=== PATIENT | male | born 1980 | race Caucasian/White ===

== ENCOUNTER 2016-10-15 22:37 | Emergency (ER) | payer OTHER ==
[~2016-10-15] VITALS: Ht 165.1 cm; Wt 64.0 kg
[~2016-10-15 22:37] MED LIST: BLOO1EAC85 MC; LANC1COM MC; LANT3I SC; LORA1TAB PO; NOVO3I SC; ONDA4TAB14 PO; [UNRECOGNIZED DRUG - CODE] MC
[2016-10-15 22:45] VITALS: Ht 165.1 cm; Wt 64.0 kg
[2016-10-15] MEDS ORDERED: ONDANSETRON 4 MG INJ IV STA (23:07)
[2016-10-15] MEDS ORDERED: SOD CHLORIDE 0.9% 1,000 ML IV STA (23:07)
[2016-10-15] MEDS ORDERED: morphine 4 MG/ML VIAL IV STA (23:07)
--- NOTE | 2016-10-15 23:13 | ERD ---
ER Documentation Chief Complaint Date/Time DATE: 10/15/16 TIME: 23:12 Chief Complaint vomited multiple times today w/ diffuse abd pain HPI 36 L with a history of diabetes comes emergency room with nausea, vomiting epigastric abdominal pain that started this morning. Patient states that he has epigastric pain that is radiating diffusely. He denies fever, chills, diarrhea. ROS All systems reviewed and are negative except as per history of present illness. Medications Home Meds Active Scripts Ondansetron (Ondansetron Odt) 4 Mg Tab.rapdis, 4 MG PO Q6H Y for NAUSEA AND/OR VOMITING, #20 TAB Prov:ARMIN CORDERO PA-C 10/16/16 Ranitidine Hcl* (Zantac*) 150 Mg Tablet, 150 MG PO BID Y for EPIGASTRIC PAIN, # 60 TAB Prov:ARMIN CORDERO PA-C 10/16/16 Pantoprazole* (Protonix*) 40 Mg Tablet.dr, 40 MG PO DAILY, #20 TAB Prov:ARMIN CORDERO PA-C 10/16/16 Lorazepam* (Lorazepam*) 1 Mg Tablet, 1 MG PO Q8H Y for ANXIETY, #15 TAB Prov:WADE DEL VALLE DO 08/15/16 Ondansetron (Ondansetron Odt) 4 Mg Tab.rapdis, 4 MG PO Q6H Y for NAUSEA AND/OR VOMITING, #10 TAB Prov:ELIE LAU NP 07/05/16 Insulin Glargine* (Lantus*) 100 Unit/Ml Soln, 22 UNIT SC HS for 30 Days, #5 3 Refills Prov:TAMI BHATIA MD 03/06/16 Insulin Aspart* (Novolog Insulin Pen*) 100 Unit/Ml Soln, 4 UNIT SC WITH MEALS for ELEVATED GLUCOSE for 30 Days, #5 3 Refills Prov:TAMI BHATIA MD 03/06/16 Lancets/Blood Glucose Strips (Fora [id number] Lanct-Str) 1 Each Combo..pkg , 1 EACH MC, #360 Prov:NNEKA NOGUERA MD 03/06/16 Syringe W-Ndl, Disp,Insul,1ML (Bd Insulin Syringe Micro-Fine) 1 Dis.syr Disp.syrin, 1 DIS.SYR MC, #360 Prov:NNEKA NOGUERA MD 03/06/16 Blood-Glucose Meter (Blood Glucose Meter) 1 Pkt Each, 1 PKT , #1 Prov:NNEKA NOGUERA MD 03/06/16 Insulin Glargine* (Lantus*) 100 Unit/Ml Soln, 22 UNIT SC HS for 60 Days, 1 Refill Prov:NNEKA NOGUERA MD 03/06/16 Insulin Aspart* (Novolog Insulin Pen*) 100 Unit/Ml Soln, 8 UNIT SC WITH MEALS for 90 Days, 0 Refills with carbohydrate meals Prov:NNEKA NOGUERA MD 03/06/16 Lorazepam* (Lorazepam*) 1 Mg Tablet, 1 MG PO Q8H Y for ANXIETY, #10 Prov:ARNALDO ONEILL 06/10/15 Allergies Allergies: Coded Allergies: No Known Allergy (Unverified , 08/14/16) PMhx/Soc Medical and Surgical Hx: pt denies Medical Hx, pt denies Surgical Hx History of Surgery: No Anesthesia Reaction: No Hx Neurological Disorder: No Hx Respiratory Disorders: No Hx Cardiac Disorders: No Hx Psychiatric Problems: No Hx Miscellaneous Medical Probl: Yes (iddm, pancreatitis) Hx Alcohol Use: Yes (socially) Hx Substance Use: No Hx Tobacco Use: No Physical Exam Vitals Vital Signs Date Time Temp Pulse Resp B/P Pulse Ox O2 Delivery O2 Flow Rate FiO2 10/15/16 22:45 98.1 104 20 163/90 100 Physical Exam General: Well-developed, well-nourished. The patient appears in no acute distress. HEENT: Head is normocephalic, atraumatic. No scleral icterus. Neck: Supple. Nontender. Lungs: Clear to auscultation. Normal air movement. Heart: Regular rate and rhythm. S1 and S2 are normal. No murmurs, gallops, or rubs. Abdomen: Soft, tender in the epigastric region nondistended. Bowel sounds are normoactive. No rebound pain or guarding Extremities: No clubbing or cyanosis. Normal pulses. Moving extremities x 4. No weakness. Neurologic: Alert and oriented 3. No focal deficits. Skin: Normal turgor. No rash or lesions. Result Diagram: 10/15/16 6866 10/15/16 2358 Results 24 hrs Laboratory Tests Test 10/15/16 23:58 Alanine Aminotransferase (ALT/SGPT) 212IU/L Albumin 4.1g/dl Albumin/Globulin Ratio 1.13 Alkaline Phosphatase 176IU/L Anion Gap 21 Aspartate Amino Transf (AST/SGOT) 283IU/L Basophils # 0.010^3/ul Basophils % 0.8% Blood Urea Nitrogen 12mg/dl Calcium Level 8.8mg/dl Carbon Dioxide Level 30mmol/L Chloride Level 87mmol/L Creatinine 0.76mg/dl Direct Bilirubin 0.30mg/dl Eosinophils # 0.010^3/ul Eosinophils % 0.5% Globulin 3.60g/dl Glucose Level 244mg/dl Hematocrit 48.3% Hemoglobin 16.9g/dl Indirect Bilirubin 1.2mg/dl Lipase 32U/L Lymphocytes # 0.710^3/ul Lymphocytes % 28.0% Mean Corpuscular Hemoglobin 32.1pg Mean Corpuscular Hemoglobin Concent 35.1g/dl Mean Corpuscular Volume 91.6fl Mean Platelet Volume 9.3fl Monocytes # 0.310^3/ul Monocytes % 13.0% Neutrophils # 1.510^3/ul Neutrophils % 57.7% Nucleated Red Blood Cells # 0.010^3/ul Nucleated Red Blood Cells % 0.0/100WBC Platelet Count 75436^3/UL Potassium Level 3.5mmol/L Red Blood Count 5.2710^6/ul Red Cell Distribution Width 14.1% Sodium Level 134mmol/L Total Bilirubin 1.5mg/dl Total Protein 7.7g/dl Urine Bilirubin NEGATIVE Urine Clarity CLEAR Urine Color YELLOW Urine Glucose >=1000% Urine Hemoglobin NEGATIVE Urine Ketones NEGATIVE Urine Leukocyte Esterase NEGATIVE Urine Nitrite NEGATIVE Urine Specific [place] 1.015 Urine Total Protein NEGATIVE Urine Urobilinogen 0.2 E.U./dL Urine pH 6.5 White Blood Count 2.610^3/ul Current Medications Medications (Trade) Dose Ordered Sig/Narendra Route PRN Reason Start Time Stop Time Status Last Admin Dose Admin Sodium Chloride (NS) 1,000 ml @ 1,000 mls/hr Q1H STAT IV 10/15/16 23:07 10/16/16 00:06 DC 10/15/16 23:58 Morphine Sulfate (morphine) 4 mg ONCE STAT IV 10/15/16 23:07 10/15/16 23:09 DC 1/20/17 23:59 Ondansetron HCl (Zofran Inj) 4 mg ONCE STAT IV 10/15/16 23:07 10/15/16 23:09 DC 10/15/16 23:59 Ondansetron HCl 4 mg 4 mg ONCE STAT IV 10/16/16 00:47 10/16/16 00:48 DC 10/16/16 00:52 Sodium Chloride (NS) 1,000 ml @ 1,000 mls/hr Q1H ONCE IV 10/16/16 01:30 10/16/16 02:29 10/16/16 01:49 Famotidine (Pepcid Iv) 20 mg ONCE ONCE IV 10/16/16 01:30 10/16/16 01:31 DC 10/16/16 01:48 Hydromorphone HCl (Dilaudid) 1 mg ONCE STAT IV 10/16/16 02:04 10/16/16 02:05 DC Miscellaneous Medication (Gi Cocktail (2)) 40 ml ONCE STAT PO 10/16/16 02:13 10/16/16 02:16 DC Belladonna/ Phenobarbital () 1 tab ONCE ONCE PO 10/16/16 02:30 10/16/16 02:31 PROCEDURE: Ultrasound right upper quadrant CLINICAL INDICATION: Epigastric pain with nausea and vomiting. TECHNIQUE: Ultrasound abdomen with focus on the right upper quadrant COMPARISON: MRI abdomen dated 12/18/[address] abdomen and pelvis dated 12/17. FINDINGS: Sludge within gallbladder, without shadowing stones. No gallbladder wall thickening or pericholecystic fluid. Gallbladder wall measures 1 mm in thickness. Common bile duct measures 4 mm. Liver measures 167 mm. Right kidney measures 108 mm, and there is no evident renal mass, hydronephrosis or retained calculus. Pancreas is obscured by overlying bowel gas. IMPRESSION: 1. Gallbladder sludge, otherwise without evident acute process. 2. Findings may represent that acalculus cholecystitis in the appropriate clinical setting. RPTAT: [facility] Physician Soniya Date Time Electronically viewed and signed by Physician Soniya on 10/16/2016 02:03 RS/ Procedures/MDM ED course: Patient on IV line established, he was given a fluid bolus of normal saline 1 L , morphine 4 mg and Zofran 4 mg IV. He was also given Pepcid 20 mg IV and he experienced one episode of emesis and was given a repeat dose of Zofran 4 mg IV. After the ultrasound was then, he continued to complain of abdominal pain, he was given a dose of Dilaudid 1 mg IV, GI cocktail was also given. I discussed his case with my supervising physician and it was agreed upon that the patient does not have an acute or surgical process. He was counseled at length about drinking and the long-term effects and he was advised ice to quit drinking completely given that his liver enzymes are elevated. There is no evidence of acute pancreatitis, no evidence of an obstructive process or acute cholecystitis based on the patient's ultrasound. He was advised to fill the prescriptions for Protonix, ranitidine and Zofran, he was also given and instructions to follow-up with gastroenterology. Observation of patient's pain will be signed out to Ema Redmna PA-C, he should not require any further pain medication especially opiates. He will be discharged after observation of his pain. Departure Diagnosis: Primary Impression: Abdominal pain Additional Impression: Transaminitis Condition: ARMIN Russell PA-C Oct 15, 2016 23:13
[2016-10-16 00:37] LABS: ALBUMIN 4.1 g/dl (3.3-4.9); POTASSIUM 3.5 mmol/L (3.5-5.1)
[2016-10-16 00:39] LABS: CREATININE 0.76 mg/dl (0.61-1.24)
[2016-10-16 00:40] LABS: ADD UMIC NO; ALBUMIN/GLOBULIN RATIO 1.13; BILIRUBIN,DIRECT 0.3 mg/dl (0.00-0.20); BILIRUBIN,INDIRECT 1.2 mg/dl (0-1.1); BILIRUBIN,TOTAL 1.5 mg/dl (0.2-1.3); CALCIUM 8.8 mg/dl (8.4-10.2); TOTAL PROTEIN 7.7 g/dl (6.1-8.1); URINE BILIRUBIN (Dip) NEGATIVE (NEGATIVE); URINE BLOOD (Dip) NEGATIVE (NEGATIVE); URINE COLOR YELLOW (YELLOW); URINE GLUCOSE (Dip) >=1000 % (NEGATIVE); URINE KETONES (Dip) NEGATIVE (NEGATIVE); URINE LEUKOCYTE ESTERASE (Dip) NEGATIVE (NEGATIVE); URINE NITRITE (Dip) NEGATIVE (NEGATIVE); URINE TOTAL PROTEIN (Dip) NEGATIVE (NEGATIVE); URINE UROBILINOGEN (Dip) 0.2 E.U./dL (0.1-1.0)
[2016-10-16 00:44] LABS: BASOPHILS % 0.8 % (0.0-2.0); EOSINOPHILS % 0.5 % (0.0-7.0); HEMATOCRIT 48.3 % (42.0-52.0); HEMOGLOBIN 16.9 g/dl (14.0-18.0); LYMPHOCYTES # 0.7 10^3/ul (0.8-2.9); MEAN CORPUSCULAR HEMOGLOBIN 32.1 pg (29.0-33.0); MEAN CORPUSCULAR HGB CONC 35.1 g/dl (32.0-37.0); MEAN CORPUSCULAR VOLUME 91.6 fl (82.0-101.0); MEAN PLATELET VOLUME 9.3 fl (7.4-10.4); MONOCYTE # 0.3 10^3/ul (0.3-0.9); NEUTROPHIL # 1.5 10^3/ul (1.6-7.5); NEUTROPHILS % 57.7 % (39.0-77.0); PLATELET COUNT 122 10^3/UL (140-440); RED BLOOD COUNT 5.27 10^6/ul (4.70-6.10); RED CELL DISTRIBUTION WIDTH 14.1 % (11.5-14.5); UNCORRECTED WBC 2.6 10^3/ul (4.8-10.8); WHITE BLOOD COUNT 2.6 10^3/ul (4.8-10.8)
[2016-10-16] MEDS ORDERED: ONDANSETRON 4 MG INJ IV STA (00:47)
[2016-10-16 00:52] LABS: CONDITION 1; LH ANALYZER COMMENTS 1; SUSPECT 1
[2016-10-16] MEDS ORDERED: SOD CHLORIDE 0.9% 1,000 ML IV ONE (01:30)
[2016-10-16] MEDS ORDERED: FAMOTIDINE 20 MG INJ IV ONE (01:30)
[2016-10-16] MEDS ORDERED: ONDA4TAB14 PO (02:01)
[2016-10-16] MEDS ORDERED: RANI150T9 PO (02:01)
[2016-10-16] MEDS ORDERED: PANT40TA3 PO (02:01)
[2016-10-16] MEDS ORDERED: HYDROmorphONE 1 MG/ML SYG IV STA (02:04)
--- NOTE | 2016-10-16 02:04 | RADRPT ---
PROCEDURE: Ultrasound right upper quadrant CLINICAL INDICATION: Epigastric pain with nausea and vomiting. TECHNIQUE: Ultrasound abdomen with focus on the right upper quadrant COMPARISON: MRI abdomen dated 12/18/[address] abdomen and pelvis dated 12/17/2014. FINDINGS: Sludge within gallbladder, without shadowing stones. No gallbladder wall thickening or pericholecys tic fluid. Gallbladder wall measures 1 mm in thickness. Common bile duct measures 4 mm. Liver measures 167 mm. Right kidney measures 108 mm, and there is no evident renal mass, hydronephrosis or retained calculus. Pancreas is obscured by overlying bowel gas. IMPRESSION: 1. Gallbladder sludge, otherwise without evident acute process. 2. Findings may represent that acalculus cholecystitis in the appropriate clinical setting. RPTAT: [facility] Physician Soniya Date Time Electronically viewed and signed by Physician Soniya on 10/16/2016 02:03 RS/
[2016-10-16] MEDS ORDERED: LIDOCAINE/MYLANTA 40 ML BTL PO STA (02:13)
[2016-10-16] MEDS ORDERED: BELLADONNA/PHENOBARBITAL TAB PO ONE (02:30)
[2016-10-16 03:48] VITALS: PULSE 99; RESP 18; TEMP 97.9
[2016-10-16 04:03] VITALS: BP 142/104
[2016-10-16] MEDS ORDERED: ONDANSETRON (ODT) 4 MG TAB ODT STA (04:37)
[2016-10-16] MEDS ORDERED: PROM25TA14 PO (07:10)
== END 2016-10-16 07:18 | disposition home or self-care (01) ==
LOC: FTE 22:37
DX: R10.84 Generalized abdominal pain (principal); E11.9 Type 2 diabetes mellitus without complications; R74.0 Nonspecific elevation of levels of transaminase and lactic acid dehydrogenase [LDH]; R11.2 Nausea with vomiting, unspecified; Z79.4 Long term (current) use of insulin
CPT/HCPCS: 36415; 76705; 80053; 81003; 83690; 85025; 96374; 96375; 96376; J1170; J2270; J2405; J7030; Z7502; Z7610

== ENCOUNTER 2016-12-27 11:16 | Emergency (ER) | payer OTHER ==
[~2016-12-27] VITALS: Ht 165.1 cm; Wt 63.0 kg
[~2016-12-27 11:16] MED LIST changes: +PANT40TA3 PO; +PROM25TA14 PO; +RANI150T9 PO
[2016-12-27 11:20] VITALS: Ht 165.1 cm; Wt 63.0 kg
--- NOTE | 2016-12-27 12:54 | ERD ---
ER Documentation Chief Complaint Date/Time DATE: 12/27/16 TIME: 12:51 Chief Complaint alcohol withdrawl symptoms HPI Patient is a 36-year-old male with a past medical history of type 2 diabetes, pancreatitis who presents emergency department with concerns of alcohol abuse. Patient states that he drank 4 small bottles of tequila, 4 small bottles of vodka,and a Monster energy drink last night. Patient states he is here because he wants to be checked into a rehab facility. Patient states that he is finishing to quit drinking. Patient states that he drinks to handle his increased stress levels at work. Patient denies any hallucinations, suicidal or homicidal ideations at this time. Patient denies any tremors at this time. Patient denies any seizures, abdominal pain, nausea, vomiting, fever, chills, chest pain, SOB, or loss of consciousness at this time. ROS All systems reviewed and are negative except as per history of present illness. Medications Home Meds Active Scripts Promethazine Hcl* (Phenergan*) 25 Mg Tablet, 25 MG PO Q6 Y for NAUSEA AND/OR VOMITING, #10 TAB Prov:CAROL PERDUE PA-C 10/16/16 Ondansetron (Ondansetron Odt) 4 Mg Tab.rapdis, 4 MG PO Q6H Y for NAUSEA AND/OR VOMITING, #20 TAB Prov:ARMIN CORDERO PA-C 10/16/16 Ranitidine Hcl* (Zantac*) 150 Mg Tablet, 150 MG PO BID Y for EPIGASTRIC PAIN, # 60 TAB Prov:ARMIN CORDERO PA-C 10/16/16 Pantoprazole* (Protonix*) 40 Mg Tablet.dr, 40 MG PO DAILY, #20 TAB Prov:ARMIN CORDERO PA-C 10/16/16 Lorazepam* (Lorazepam*) 1 Mg Tablet, 1 MG PO Q8H Y for ANXIETY, #15 TAB Prov:WADE DEL VALLE DO 08/15/16 Ondansetron (Ondansetron Odt) 4 Mg Tab.rapdis, 4 MG PO Q6H Y for NAUSEA AND/OR VOMITING, #10 TAB Prov:ELIE LAU NP 07/05/16 Insulin Glargine* (Lantus*) 100 Unit/Ml Soln, 22 UNIT SC HS for 30 Days, #5 3 Refills Prov:TAMI BHATIA MD 03/06/16 Insulin Aspart* (Novolog Insulin Pen*) 100 Unit/Ml Soln, 4 UNIT SC WITH MEALS for ELEVATED GLUCOSE for 30 Days, #5 3 Refills Prov:TAMI BHATIA MD 03/06/16 Lancets/Blood Glucose Strips (Fora [id number] Lanct-Str) 1 Each Combo..pkg , 1 EACH , #360 Prov:NNEKA NOGUERA MD 03/06/16 Syringe W-Ndl, Disp,Insul,1ML (Bd Insulin Syringe Micro-Fine) 1 Dis.syr Disp.syrin, 1 DIS.SYR , #360 Prov:NNEKA NOGUERA MD 03/06/16 Blood-Glucose Meter (Blood Glucose Meter) 1 Pkt Each, 1 PKT , #1 Prov:NNEKA NOGUERA MD 03/06/16 Insulin Glargine* (Lantus*) 100 Unit/Ml Soln, 22 UNIT SC HS for 60 Days, 1 Refill Prov:NNEKA NOGUERA MD 03/06/16 Insulin Aspart* (Novolog Insulin Pen*) 100 Unit/Ml Soln, 8 UNIT SC WITH MEALS for 90 Days, 0 Refills with carbohydrate meals Prov:NNEKA NOGUERA MD 03/06/16 Lorazepam* (Lorazepam*) 1 Mg Tablet, 1 MG PO Q8H Y for ANXIETY, #10 Prov:ARNALDO ONEILL 06/10/15 Allergies Allergies: Coded Allergies: No Known Allergy (Unverified , 08/14/16) PMhx/Soc History of Surgery: No Anesthesia Reaction: No Hx Neurological Disorder: No Hx Respiratory Disorders: No Hx Cardiac Disorders: No Hx Psychiatric Problems: No Hx Miscellaneous Medical Probl: Yes (iddm, pancreatitis) Hx Alcohol Use: Yes (socially) Hx Substance Use: No Hx Tobacco Use: No Physical Exam Vitals Vital Signs Date Time Temp Pulse Resp B/P Pulse Ox O2 Delivery O2 Flow Rate FiO2 12/27/16 11:20 98.4 108 18 135/83 99 Physical Exam GENERAL: Well-developed, well-nourished male. Appears in no acute distress. Speaking in full sentences. HEAD: Normocephalic, atraumatic. EYES: Pupils are equally reactive bilaterally. EOMs grossly intact. No conjunctival erythema. ENT: Moist mucous membranes. No uvula deviation. No kissing tonsils. NECK: Supple. No lymphadenopathy or thyromegaly. No meningismus. LUNG: Clear to auscultation bilaterally. No rhonchi, wheezing, rales or coarse breath sounds. HEART: Regular rate and rhythm. No murmurs, rubs or gallops. ABDOMEN: No scars, ecchymosis or rashes noted. Soft, nontender, and nondistended. Positive bowel sounds in all four quadrants.~No rebound tenderness , no guarding. (-) McBurneys point tenderness. No CVA tenderness. BACK: No midline tenderness. Extremities: Equal pulses bilaterally. No peripheral clubbing, cyanosis or edema. No unilateral leg swelling. NEUROLOGIC: Alert and oriented. Moving all four extremities. 5/5 strength in all extremities. Normal speech. Steady gait. No tremors. SKIN: Normal color. Warm and dry. No rashes or lesions. Results 24 hrs Current Medications Medications (Trade) Dose Ordered Sig/Narendra Route PRN Reason Start Time Stop Time Status Last Admin Dose Admin Lorazepam (Ativan) 1 mg ONCE ONCE PO 12/27/16 13:00 12/27/16 13:01 DC 12/27/16 12:46 Procedures/MDM MEDICAL DECISION MAKING: This is a 36 year old male with a history of alcohol abuse, DM Type 2, pancreatitis who presents to the ED with concerns of alcohol abuse. Patient states that he is wishing to check in to an rehab center and wants to stop drinking. Patient denied any nausea, vomiting or abdominal pain. Patient denied any current hallucinations, suicidal ideations or homicidal ideations. Patient reported last consuming alcohol last night. Patient was given a single dose of Ativan in ED to aid with any alcohol withdrawal symptoms that he may later develop. I had a discussion at length about the numerous options of help available including rehab facilities in the immediate area. Patient provided with a list of local rehab facilities. Patient was urged to check in immediately to get the help he needs with his alcoholism. At this time, patient' s presentation is most consistent with alcohol abuse. Low suspicion for hallucinations, ethanol toxicity, drug toxicity, suicidal ideations, homicidal ideations. DISCHARGE: At this time, patient is stable for discharge and outpatient management. I discussed the patient's presentation, diagnosis and dispo plan with my supervising physician, Dr. Hdz, who agrees with the above mentioned plan. I have instructed the patient to follow-up with his/her primary care physician in 1-2 days. Patient strongly urged to go to a rehab facility and seek the help he needs. I have instructed the patient to promptly return to the ER for any new or worsening symptoms including increased pain, fever, nausea, vomiting, weakness or LOC. The patient and/or family expressed understanding of and agreement with this plan. All questions were answered. Home care instructions were provided. Departure Diagnosis: Primary Impression: Alcohol abuse Condition: Stable Patient Instructions: Alcohol Abuse Referrals: [facility] Additional Instructions: Call your primary care doctor TOMORROW for an appointment during the next 1-2 days.See the doctor sooner or return here if your condition worsens before your appointment time. Patient strongly urged to check into a rehab facility [facility]. See referral list provided. AYDEE WONG PA-C Dec 27, 2016 12:53
[2016-12-27] MEDS ORDERED: LORAZEPAM 1 MG TAB PO ONE (13:00)
== END 2016-12-27 13:40 | disposition home or self-care (01) ==
LOC: FTE 11:16
DX: F10.10 Alcohol abuse, uncomplicated (principal); E11.9 Type 2 diabetes mellitus without complications; Z79.4 Long term (current) use of insulin
CPT/HCPCS: Z7502; Z7610; 99283

== ENCOUNTER 2017-01-29 02:36 | Emergency (ER) | payer OTHER ==
[~2017-01-29] VITALS: Ht 172.7 cm; Wt 67.0 kg
[2017-01-29 02:40] VITALS: Ht 172.7 cm; Wt 67.0 kg
[2017-01-29] MEDS ORDERED: IBUPROFEN 800 MG TAB PO ONE (03:30)
--- NOTE | 2017-01-29 04:28 | RADRPT ---
PROCEDURE: Left tibia and fibula. CLINICAL INDICATION: Pain. TECHNIQUE: Two views including AP and lateral views of the left tibia and fibula were obtained. COMPARISON: None. FINDINGS: There is no fracture, dislocation or bone destruction. The joint spaces are within normal limits. Bone mineralization is within normal limits. There is no radiopaque foreign body or abnormal calcif ication. IMPRESSION: No evidence of fracture. .David Hernandez MD, MD Date Time Electronically viewed and signed by .David Hernandez MD, on 01/29/2017 04:28 .T/
--- NOTE | 2017-01-29 04:29 | RADRPT ---
PROCEDURE: Left ankle. CLINICAL INDICATION: Pain. TECHNIQUE: Three views including AP, lateral and oblique views of the left ankle were performed. COMPARISON: None. FINDINGS: There is a transverse fracture of the proximal aspect of the third metatarsal. There is no dislocat ion. The ankle mortise is within normal limits. Bone mineralization is within normal limits. Ther e is no radiopaque foreign body or abnormal calcification. IMPRESSION: Transverse fracture of the proximal aspect of the third metatarsal. .David Hernandez MD, Date Time Electronically viewed and signed by .David Hernandez MD, MD on 01/29/2017 04:29 .T/
--- NOTE | 2017-01-29 04:30 | RADRPT ---
PROCEDURE: Left foot. CLINICAL INDICATION: Pain. TECHNIQUE: Three views including AP, lateral and oblique views of the left foot were obtained. T he images were reviewed on a PACS workstation. COMPARISON: None. FINDINGS: There is a nondisplaced fracture of the proximal aspect of the third metatarsal. There is no disloc ation. The joint spaces are within normal limits. Bone mineralization is within normal limits. Th ere is no radiopaque foreign body or abnormal calcification. IMPRESSION: Nondisplaced fracture of the proximal aspect of the third metatarsal. .David Hernandez MD, MD Date Time Electronically viewed and signed by .David Hernandez MD, MD on 01/29/2017 04:30 .T/
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
[2017-01-29] MEDS ORDERED: HYDR-906 PO (04:47)
[2017-01-29] MEDS ORDERED: IBUP800T25 PO (04:47)
== END 2017-01-29 04:53 | disposition home or self-care (01) ==
LOC: FTE 02:36
DX: S92.332A Displaced fracture of third metatarsal bone, left foot, initial encounter for closed fracture (principal); S90.32XA Contusion of left foot, initial encounter; E11.9 Type 2 diabetes mellitus without complications; W20.8XXA Other cause of strike by thrown, projected or falling object, initial encounter; Y92.9 Unspecified place or not applicable; Z79.4 Long term (current) use of insulin
CPT/HCPCS: 73590; 73610; 73630; Z7502; Z7610

== ENCOUNTER 2017-02-15 02:26 | Emergency (ER) | payer OTHER ==
[~2017-02-15] VITALS: Ht 172.7 cm; Wt 70.0 kg
[~2017-02-15 02:26] MED LIST changes: +HYDR-906 PO; +IBUP800T25 PO
[2017-02-15 03:15] VITALS: Ht 172.7 cm; Wt 70.0 kg
[2017-02-15] MEDS ORDERED: morphine 4 MG/ML VIAL IV STA ×2 (07:27→10:13)
[2017-02-15] MEDS ORDERED: ONDANSETRON 4 MG INJ IV STA ×2 (07:27→10:13)
--- NOTE | 2017-02-15 08:17 | RADRPT ---
PROCEDURE: US DVT. CLINICAL INDICATION: Left lower extremity pain and swelling. TECHNIQUE: Multiple longitudinal and transverse images of the left lower extremity veins were obta ined with davis scale and color Doppler imaging. 2D grayscale measurements with compression, color D oppler flow, and augmentation was performed. The calf veins were interrogated as well. COMPARISON: No prior studies are available for comparison. FINDINGS: The left common femoral, superficial femoral and popliteal veins are normally compressible throughou t. Color flow demonstrates normal filling of the vessel. Normal waveforms are visualized and there is normal response to augmentation. The calf veins are unremarkable . IMPRESSION: No evidence of deep vein thrombosis involving the left lower extremity. RPTAT:HH .Leanne Goff MD, MD Date Time Electronically viewed and signed by .Leanne Goff MD, on 02/15/2017 08:16 .G/
--- NOTE | 2017-02-15 08:49 | RADRPT ---
PROCEDURE: Left knee series. CLINICAL INDICATION: Left knee pain after trauma TECHNIQUE: Three views of the left knee. COMPARISON: None available FINDINGS: There is normal mineralization and alignment of the left knee. No acute fracture or dislocation is seen. Joint spaces are well maintained. There is no evidence of osteophyte formation or erosion. There is a questionable joint effusion. The soft tissues are within normal limits. IMPRESSION: 1. No evidence of acute fracture dislocation. 2. Questionable joint effusion. RPTAT: KK .Allan Carlton MD, MD Date Time Electronically viewed and signed by .Allan Carlton MD, on 02/15/2017 08:49 .B/
--- NOTE | 2017-02-15 08:51 | RADRPT ---
PROCEDURE: Left foot series. CLINICAL INDICATION: Left foot pain after injury TECHNIQUE: Three views of the left foot are available for review. COMPARISON: None available FINDINGS: There is normal mineralization and alignment of the bones of the left foot. Lisfranc's joint is sub optimally visualized but appears grossly intact. There is a probable nondisplaced fracture of the p roximal third metatarsal seen only on the oblique view. There is no other evidence of acute fractur e or dislocation Joint spaces are well maintained. No osteophytes or erosions are seen. There is m ild dorsal soft tissue swelling . IMPRESSION: 1. Probable nondisplaced fracture of the proximal third metatarsal. Recommend correlation with poi nt tenderness. 2. Mild dorsal soft tissue swelling. 3. Otherwise unremarkable left foot series. RPTAT: KK .Allan Carlton MD, MD Date Time Electronically viewed and signed by .Allan Carlton MD, on 02/15/2017 08:51 .B/
--- NOTE | 2017-02-15 08:52 | RADRPT ---
PROCEDURE: XR Tibia and Fibula. CLINICAL INDICATION: Left lower leg pain after trauma TECHNIQUE: Two views of the left tibia and fibula are available for review. COMPARISON: None available FINDINGS: There is normal mineralization and alignment of the bones of the left tibia and fibula. There is no evidence of acute fracture or dislocation. The suboptimally visualized joint spaces appear grossly within normal limits. The soft tissues are unremarkable. IMPRESSION: 1. Unremarkable left tibia and fibula x-ray series. RPTAT: KK .Allan Carlton MD, MD Date Time Electronically viewed and signed by .Allan Carlton MD, on 02/15/2017 08:52 .B/
[2017-02-15] MEDS ORDERED: ACETAMINOPHEN 325 MG TAB PO STA (08:56)
[2017-02-15 09:05] LABS: ADD SCAN DIFF NO
[2017-02-15 09:08] LABS: BASOPHILS % 0.6 % (0.0-2.0); EOSINOPHILS # 0.1 10^3/ul (0.0-0.5); EOSINOPHILS % 1.6 % (0.0-7.0); HEMATOCRIT 32.1 % (42.0-52.0); HEMOGLOBIN 11.8 g/dl (14.0-18.0); LYMPHOCYTES % 39.4 % (15.0-51.0); MEAN CORPUSCULAR HEMOGLOBIN 34.4 pg (29.0-33.0); MEAN CORPUSCULAR HGB CONC 36.8 g/dl (32.0-37.0); MEAN CORPUSCULAR VOLUME 93.6 fl (82.0-101.0); MEAN PLATELET VOLUME 9.7 fl (7.4-10.4); MONOCYTE # 0.4 10^3/ul (0.3-0.9); MONOCYTES % 8.6 % (0.0-11.0); NEUTROPHIL # 2.5 10^3/ul (1.6-7.5); NEUTROPHILS % 49.6 % (39.0-77.0); PLATELET COUNT 209 10^3/UL (140-415); RED BLOOD COUNT 3.43 10^6/ul (4.70-6.10); RED CELL DISTRIBUTION WIDTH 13.5 % (11.5-14.5)
[2017-02-15] MEDS ORDERED: NAPR-688 PO (09:13)
[2017-02-15] MEDS ORDERED: ACET325T33 PO (09:13)
[2017-02-15] MEDS ORDERED: BACITUD TOP (09:13)
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
[2017-02-15 09:31] LABS: CALCIUM 7.4 mg/dl (8.4-10.2); CREATININE 0.68 mg/dl (0.61-1.24); POTASSIUM 3.6 mmol/L (3.5-5.1)
== END 2017-02-15 10:05 | disposition home or self-care (01) ==
LOC: FTE 02:26
DX: S89.92XA Unspecified injury of left lower leg, initial encounter (principal); M25.462 Effusion, left knee; E11.9 Type 2 diabetes mellitus without complications; V18.4XXA Pedal cycle driver injured in noncollision transport accident in traffic accident, initial encounter; Z79.4 Long term (current) use of insulin
CPT/HCPCS: 29505; 36415; 73562; 73590; 73630; 80048; 85025; 87040; 93971; 96374; 96375; J2270; J2405; Z7502; Z7610

== ENCOUNTER 2017-06-23 16:49 | Emergency (ER) | payer OTHER ==
[~2017-06-23] VITALS: Ht 170.2 cm; Wt 70.0 kg
[~2017-06-23 16:49] MED LIST changes: +ACET325T33 PO; +BACITUD TOP; +NAPR-688 PO
[2017-06-23 16:52] VITALS: Ht 170.2 cm; Wt 70.0 kg
[2017-06-23 17:40] LABS: BASOPHILS % 0.5 % (0.0-2.0); EOSINOPHILS # 0.1 10^3/ul (0.0-0.5); EOSINOPHILS % 1.1 % (0.0-7.0); HEMATOCRIT 42.8 % (42.0-52.0); LYMPHOCYTES # 0.8 10^3/ul (0.8-2.9); LYMPHOCYTES % 14.2 % (15.0-51.0); MEAN CORPUSCULAR HEMOGLOBIN 32.1 pg (29.0-33.0); MEAN CORPUSCULAR VOLUME 91.5 fl (82.0-101.0); MEAN PLATELET VOLUME 10.4 fl (7.4-10.4); MONOCYTE # 0.5 10^3/ul (0.3-0.9); MONOCYTES % 9.5 % (0.0-11.0); NEUTROPHIL # 4.3 10^3/ul (1.6-7.5); NEUTROPHILS % 74.5 % (39.0-77.0); PLATELET COUNT 161 10^3/UL (140-415); RED BLOOD COUNT 4.68 10^6/ul (4.70-6.10); RED CELL DISTRIBUTION WIDTH 12.1 % (11.5-14.5); WHITE BLOOD COUNT 5.7 10^3/ul (4.8-10.8)
[2017-06-23 17:42] LABS: ADD UMIC NO; UR ASCORBIC ACID NEGATIVE (NEGATIVE); UR BILIRUBIN (Dip) NEGATIVE (NEGATIVE); UR BLOOD (Dip) NEGATIVE (NEGATIVE); UR CLARITY CLEAR (CLEAR); UR COLOR YELLOW (YELLOW); UR GLUCOSE (Dip) NEGATIVE (NEGATIVE); UR KETONES (Dip) NEGATIVE (NEGATIVE); UR LEUKOCYTE ESTERASE (Dip) NEGATIVE Leu/ul (NEGATIVE); UR NITRITE (Dip) NEGATIVE (NEGATIVE); UR SPECIFIC GRAVITY (Dip) 1.028 (1.003-1.030); UR TOTAL PROTEIN (Dip) NEGATIVE (NEGATIVE); UR UROBILINOGEN (Dip) NEGATIVE (NEGATIVE)
[2017-06-23 18:03] LABS: ALANINE AMINOTRANSFERASE 58 IU/L (13-69); ALBUMIN 4.4 g/dl (3.3-4.9); ALBUMIN/GLOBULIN RATIO 1.37; ALKALINE PHOSPHATASE 52 IU/L (42-121); ANION GAP 13 (8-16); ASPARTATE AMINO TRANSFERASE 51 IU/L (15-46); BILIRUBIN,INDIRECT 0.4 mg/dl (0-1.1); BILIRUBIN,TOTAL 0.4 mg/dl (0.2-1.3); BLOOD UREA NITROGEN 14 mg/dl (7-20); CALCIUM 8.9 mg/dl (8.4-10.2); CARBON DIOXIDE 28 mmol/L (21-31); CHLORIDE 106 mmol/L (97-110); GLUCOSE 126 mg/dl (70-220); POTASSIUM 3.8 mmol/L (3.5-5.1); SODIUM 143 mmol/L (135-144); TOTAL PROTEIN 7.6 g/dl (6.1-8.1)
--- NOTE | 2017-06-23 18:03 | PSY ---
Date/Time of Note Date/Time of Note DATE: 06/23/17 TIME: 18:00 Psychiatric Subjective Eval Consent Pt consented to telemedicine: Yes Subjective Evaluation Patient location: emergency Chief Complaint: auditory hallucinations, sore throat, + etoh. History of present illness 36/m, relapsed on alcohol abuse, c/o auditory hallucinations asking him to , kill self, they are present all the time, family is worried that he will hurt self. he feels that he may hurt self like he had cut himself 3 yrs ago. he is unable to stop ETOH for long periods. Past psychiatric history ETOH abuse one SA Hospitalization: yes Medical history Problems Medical Problems: (1) Abdominal pain Status: Acute (2) Alcohol abuse Status: Acute (3) Alcohol abuse Status: Acute (4) Alcohol withdrawal syndrome Status: Acute (5) Alcohol withdrawal syndrome Status: Acute (6) Chronic pancreatitis Status: Chronic (7) Cirrhosis with alcoholism Status: Chronic (8) Diabetes mellitus due to underlying condition Status: Chronic (9) Foot contusion Status: Acute (10) Fracture of metatarsal bone of left foot Status: Acute (11) Hyperglycemia Status: Acute (12) Intractable abdominal pain Status: Acute (13) Joint effusion Status: Acute (14) New onset type 2 diabetes mellitus Status: Acute (15) Pain of left lower extremity due to injury Status: Acute (16) Swelling Status: Acute (17) Transaminitis Status: Acute (18) Vomiting Status: Acute Allergies: Coded Allergies: No Known Allergy (Unverified , 08/14/16) Social History Marital status: single Psychiatric Objective Eval Review of Systems: Review of Systems: Not Applicable Physical Examination: Physical Examination: Not Applicable Mental Status Examination: Eye Contact: Fair Psychomotor Activity: Normal Behavior: Cooperative Speech: Soft AFFECT: Depressed Mood: Depressed Though Process: Linear Suicidal: Yes Homicidal: No Orientation: x4 Cognition: Alert Insight: Impared Judgement: Impared Laboratory Results Laboratory Tests Test 06/23/17 17:30 White Blood Count 5.710^3/ul Red Blood Count 4.6810^6/ul Hemoglobin 15.0g/dl Hematocrit 42.8% Mean Corpuscular Volume 91.5fl Mean Corpuscular Hemoglobin 32.1pg Mean Corpuscular Hemoglobin Concent 35.0g/dl Red Cell Distribution Width 12.1% Platelet Count 49027^3/UL Mean Platelet Volume 10.4fl Neutrophils % 74.5% Lymphocytes % 14.2% Monocytes % 9.5% Eosinophils % 1.1% Basophils % 0.5% Nucleated Red Blood Cells % 0.0/100WBC Neutrophils # 4.310^3/ul Lymphocytes # 0.810^3/ul Monocytes # 0.510^3/ul Eosinophils # 0.110^3/ul Basophils # 0.010^3/ul Nucleated Red Blood Cells # 0.010^3/ul Urine Color YELLOW Urine Clarity CLEAR Urine pH 5.0 Urine Specific [facility] 1.028 Urine Ketones NEGATIVEmg/dL Urine Nitrite NEGATIVEmg/dL Urine Bilirubin NEGATIVEmg/dL Urine Urobilinogen NEGATIVEmg/dL Urine Leukocyte Esterase NEGATIVELeu/ul Urine Hemoglobin NEGATIVEmg/dL Urine Glucose NEGATIVEmg/dL Urine Total Protein NEGATIVEmg/dl Assessment and Plan Assessment/Diagnosis [place] I: mood diosrder NOS 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 DTS. risk of suicide is high. Alohol withdrwal precautions. 5150 Recommendation: TEO Falk MD Jun 23, 2017 18:03
[2017-06-23 18:06] LABS: ACETAMINOPHEN < 10.0 ug/ml (10.0-30.0); BARBITURATES Negative (NEGATIVE); BENZODIAZEPINES Negative (NEGATIVE); CANNABINOIDS Negative (NEGATIVE); COCAINE Positive (NEGATIVE); OPIATES Negative (NEGATIVE); SALICYLATE < 1.0 mg/dl (5.0-30.0)
[2017-06-23] MEDS ORDERED: ESCITALOPRAM 10 MG TAB PO SCH (18:30)
[2017-06-23] MEDS ORDERED: LIDOCAINE/MYLANTA 40 ML BTL PO ONE (20:00)
--- NOTE | 2017-06-23 20:20 | ERA ---
ER Documentation Chief Complaint Date/Time DATE: 06/23/17 TIME: 20:19 Chief Complaint auditory hallucinations, sore throat, + etoh. HPI Patient is a 36-year-old male with diabetes and alcohol abuse who presents saying that he is "hallucinating". He said that he has had these hallucinations for a few days. He said that he recently relapsed from alcohol. He is hearing voices. He initially denied suicidal ideation but did say that he had cut himself in the past and was thinking about doing it again. He said his last alcohol was this morning. Upon review of old medical records the patient has multiple visits to the ER for various complaints. ROS All systems reviewed and are negative except as per history of present illness. Medications Home Meds Active Scripts Bacitracin* (Bacitracin Oint (UD)*) 1 Applic Oint, 1 APPLIC TOP TID for 7 Days, PKT APPLY TO Prov:KIKA STEWART PA-C 02/15/17 Acetaminophen* (Tylenol*) 325 Mg Tablet, 2 TAB PO Q6 Y for PAIN AND OR ELEVATED TEMP, #30 TAB Prov:KIKA STEWART PA-C 02/15/17 Naproxen* (Naproxen*) 500 Mg Tablet, 500 MG PO BID Y for PAIN, #30 TAB Prov:KIKA STEWART PA-C 02/15/17 Hydrocodone/Acetaminophen ([place] 5-325 Tablet) 1 Each Tablet, 1 TAB PO Q6H Y for PAIN, #10 TAB Prov:LINWOOD TELLEZ DO 01/29/17 Ibuprofen* (Motrin*) 800 Mg Tab, 800 MG PO Q6H Y for PAIN AND OR ELEVATED TEMP, #30 TAB Prov:LINWOOD TELLEZ DO 01/29/17 Promethazine Hcl* (Phenergan*) 25 Mg Tablet, 25 MG PO Q6 Y for NAUSEA AND/OR VOMITING, #10 TAB Prov:CAROL PERDUE PA-C 10/16/16 Ondansetron (Ondansetron Odt) 4 Mg Tab.rapdis, 4 MG PO Q6H Y for NAUSEA AND/OR VOMITING, #20 TAB Prov:ARMIN CORDERO PA-C 10/16/16 Ranitidine Hcl* (Zantac*) 150 Mg Tablet, 150 MG PO BID Y for EPIGASTRIC PAIN, # 60 TAB Prov:ARMIN CORDERO PA-C 10/16/16 Pantoprazole* (Protonix*) 40 Mg Tablet.dr, 40 MG PO DAILY, #20 TAB Prov:ARMIN CORDERO PA-C 10/16/16 Lorazepam* (Lorazepam*) 1 Mg Tablet, 1 MG PO Q8H Y for ANXIETY, #15 TAB Prov:WADE DEL VALLE DO 08/15/16 Ondansetron (Ondansetron Odt) 4 Mg Tab.rapdis, 4 MG PO Q6H Y for NAUSEA AND/OR VOMITING, #10 TAB Prov:ELIE LAU NP 07/05/16 Insulin Glargine* (Lantus*) 100 Unit/Ml Soln, 22 UNIT SC HS for 30 Days, #5 3 Refills Prov:TAMI BHATIA MD 03/06/16 Insulin Aspart* (Novolog Insulin Pen*) 100 Unit/Ml Soln, 4 UNIT SC WITH MEALS for ELEVATED GLUCOSE for 30 Days, #5 3 Refills Prov:TAMI BHATIA MD 03/06/16 Lancets/Blood Glucose Strips (Fora [id number] Lanct-Str) 1 Each Combo..pkg , 1 EACH , #360 Prov:NNEKA NOGUERA MD 03/06/16 Syringe W-Ndl, Disp,Insul,1ML (Bd Insulin Syringe Micro-Fine) 1 Dis.syr Disp.syrin, 1 DIS.SYR , #360 Prov:NNEKA NGOUERA MD 03/06/16 Blood-Glucose Meter (Blood Glucose Meter) 1 Pkt Each, 1 PKT , #1 Prov:NNEKA NOGUERA MD 03/06/16 Insulin Glargine* (Lantus*) 100 Unit/Ml Soln, 22 UNIT SC HS for 60 Days, 1 Refill Prov:NNEKA NOGUERA MD 03/06/16 Insulin Aspart* (Novolog Insulin Pen*) 100 Unit/Ml Soln, 8 UNIT SC WITH MEALS for 90 Days, 0 Refills with carbohydrate meals Prov:NNEKA NOGUERA MD 03/06/16 Lorazepam* (Lorazepam*) 1 Mg Tablet, 1 MG PO Q8H Y for ANXIETY, #10 Prov:ARNALDO ONEILL 06/10/15 Allergies Allergies: Coded Allergies: No Known Allergy (Unverified , 08/14/16) PMhx/Soc History of Surgery: No Anesthesia Reaction: No Hx Neurological Disorder: No Hx Respiratory Disorders: No Hx Cardiac Disorders: No Hx Psychiatric Problems: Yes (auditory hallucinations) Hx Miscellaneous Medical Probl: Yes (iddm, pancreatitis) Hx Alcohol Use: Yes (socially) Hx Substance Use: No Hx Tobacco Use: No Smoking Status: Never smoker FmHx Family History: diabetes Physical Exam Vitals Vital Signs Date Time Temp Pulse Resp B/P Pulse Ox O2 Delivery O2 Flow Rate FiO2 06/23/17 16:52 98.6 109 18 166/113 96 Physical Exam Const: No acute distress Head: Atraumatic Eyes: Normal Conjunctiva ENT: Normal External Ears, Nose and Mouth. Neck: Full range of motion..~ No meningismus. Resp: Clear to auscultation bilaterally Cardio: Regular rate and rhythm, no murmurs Abd: Soft, non tender, non distended. Normal bowel sounds Skin: No petechiae or rashes Back: No midline or flank tenderness Ext: No cyanosis, or edema Neur: Awake and alert Psych: Positive for suicidal ideation Result Diagram: 06/23/17 1730 06/23/17 1730 Results 24 hrs Laboratory Tests Test 06/23/17 17:30 White Blood Count 5.710^3/ul Red Blood Count 4.6810^6/ul Hemoglobin 15.0g/dl Hematocrit 42.8% Mean Corpuscular Volume 91.5fl Mean Corpuscular Hemoglobin 32.1pg Mean Corpuscular Hemoglobin Concent 35.0g/dl Red Cell Distribution Width 12.1% Platelet Count 70218^3/UL Mean Platelet Volume 10.4fl Neutrophils % 74.5% Lymphocytes % 14.2% Monocytes % 9.5% Eosinophils % 1.1% Basophils % 0.5% Nucleated Red Blood Cells % 0.0/100WBC Neutrophils # 4.310^3/ul Lymphocytes # 0.810^3/ul Monocytes # 0.510^3/ul Eosinophils # 0.110^3/ul Basophils # 0.010^3/ul Nucleated Red Blood Cells # 0.010^3/ul Urine Color YELLOW Urine Clarity CLEAR Urine pH 5.0 Urine Specific [place] 1.028 Urine Ketones NEGATIVEmg/dL Urine Nitrite NEGATIVEmg/dL Urine Bilirubin NEGATIVEmg/dL Urine Urobilinogen NEGATIVEmg/dL Urine Leukocyte Esterase NEGATIVELeu/ul Urine Hemoglobin NEGATIVEmg/dL Urine Glucose NEGATIVEmg/dL Urine Total Protein NEGATIVEmg/dl Sodium Level 143mmol/L Potassium Level 3.8mmol/L Chloride Level 106mmol/L Carbon Dioxide Level 28mmol/L Anion Gap 13 Blood Urea Nitrogen 14mg/dl Creatinine 0.80mg/dl Glucose Level 126mg/dl Calcium Level 8.9mg/dl Total Bilirubin 0.4mg/dl Direct Bilirubin 0.00mg/dl Indirect Bilirubin 0.4mg/dl Aspartate Amino Transf (AST/SGOT) 51IU/L Alanine Aminotransferase (ALT/SGPT) 58IU/L Alkaline Phosphatase 52IU/L Total Protein 7.6g/dl Albumin 4.4g/dl Globulin 3.20g/dl Albumin/Globulin Ratio 1.37 Salicylates Level < 1.0mg/dl Urine Opiates Screen Negative Acetaminophen Level < 10.0ug/ml Urine Barbiturates Negative Urine Amphetamines Screen Negative Urine Benzodiazepines Screen Negative Urine Cocaine Screen Positive Urine Cannabinoids Negative Ethyl Alcohol Level 108.0mg/dl Current Medications Medications (Trade) Dose Ordered Sig/Narendra Route PRN Reason Start Time Stop Time Status Last Admin Dose Admin Escitalopram Oxalate (Lexapro) 10 mg DAILY PO 06/23/17 18:30 Quetiapine Fumarate (Seroquel) 25 mg DAILY PO 06/24/17 09:00 Quetiapine Fumarate (Seroquel) 50 mg QHS PO 06/23/17 21:00 Miscellaneous Medication (Gi Cocktail (2)) 40 ml ONCE ONCE PO 06/23/17 20:00 06/23/17 20:01 DC 06/23/17 19:52 Procedures/MDM Patient is a 36-year-old male presents with acute psychosis. The patient had laboratory studies and he is currently medically clear for psychiatric transfer. He had a psychiatry evaluation who recommended a 5150 hold as well as Lexapro and Seroquel which I have ordered. The patient will need transfer for higher level of care for inpatient psychiatric care as we do not have psychiatric care here at [facility]. Departure Diagnosis: Primary Impression: Suicidal ideation Additional Impression: Hallucinations Condition: DANE Castillo MD Jun 23, 2017 20:20
[2017-06-23] MEDS ORDERED: QUETIAPINE 100 MG TAB PO SCH (21:00)
[2017-06-23] MEDS ORDERED: IBUPROFEN 800 MG TAB PO ONE (21:00)
[2017-06-23] MEDS ORDERED: KETOROLAC 30 MG INJ IV STA (21:40)
[2017-06-23 22:30] VITALS: BP 147/97; PULSE 86; RESP 16
[2017-06-24] MEDS ORDERED: QUETIAPINE 25 MG TAB PO SCH (09:00)
== END 2017-06-23 22:35 | disposition short-term general hospital (02) ==
LOC: E/R 16:49
DX: R45.851 Suicidal ideations (principal); E11.9 Type 2 diabetes mellitus without complications; Z79.4 Long term (current) use of insulin
CPT/HCPCS: 36415; 80053; 80306; 80307; 81003; 85025; 96374; J1885; Z7502; Z7610

== ENCOUNTER 2017-07-09 08:04 | Emergency (ER) | payer OTHER ==
[~2017-07-09] VITALS: Ht 172.7 cm; Wt 70.5 kg
[2017-07-09 08:08] VITALS: Ht 172.7 cm; Wt 70.5 kg
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
[2017-07-09] MEDS ORDERED: SOD CHLORIDE 0.9% 1,000 ML IV STA (08:59)
--- NOTE | 2017-07-09 09:17 | RADRPT ---
PROCEDURE: XR ribs . CLINICAL INDICATION: pain TECHNIQUE: AP and oblique views of the right ribs were obtained. A metallic marker was placed over a right lateral lower rib. COMPARISON: None FINDINGS: There is a nondisplaced fracture involving the right 7th and 8th ribs. The bone mineralization is normal. The soft tissues are unremarkable. RPTAT: AA IMPRESSION: Nondisplaced fracture involving the right 7th and 8th ribs. .Sergio Claire MD, Date Time Electronically viewed and signed by .Sergio Claire MD, MD on 07/09/2017 09:17 .S/
[2017-07-09 09:35] LABS: BASOPHILS % 0.7 % (0.0-2.0); EOSINOPHILS # 0.1 10^3/ul (0.0-0.5); EOSINOPHILS % 2.3 % (0.0-7.0); HEMATOCRIT 38.9 % (42.0-52.0); HEMOGLOBIN 13.6 g/dl (14.0-18.0); LYMPHOCYTES % 32.6 % (15.0-51.0); MEAN CORPUSCULAR HEMOGLOBIN 31.6 pg (29.0-33.0); MEAN CORPUSCULAR VOLUME 90.3 fl (82.0-101.0); MEAN PLATELET VOLUME 10.9 fl (7.4-10.4); MONOCYTE # 0.3 10^3/ul (0.3-0.9); MONOCYTES % 10.1 % (0.0-11.0); NEUTROPHIL # 1.7 10^3/ul (1.6-7.5); NEUTROPHILS % 54.3 % (39.0-77.0); PLATELET COUNT 193 10^3/UL (140-415); RED BLOOD COUNT 4.31 10^6/ul (4.70-6.10); RED CELL DISTRIBUTION WIDTH 12.1 % (11.5-14.5); WHITE BLOOD COUNT 3.1 10^3/ul (4.8-10.8)
[2017-07-09] MEDS ORDERED: KETOROLAC 30 MG INJ IV STA (09:37)
[2017-07-09 09:51] LABS: ADD UMIC NO; UR ASCORBIC ACID NEGATIVE (NEGATIVE); UR BILIRUBIN (Dip) NEGATIVE (NEGATIVE); UR BLOOD (Dip) NEGATIVE (NEGATIVE); UR CLARITY CLEAR (CLEAR); UR COLOR STRAW (YELLOW); UR GLUCOSE (Dip) 3+ mg/dL (NEGATIVE); UR KETONES (Dip) NEGATIVE (NEGATIVE); UR LEUKOCYTE ESTERASE (Dip) NEGATIVE Leu/ul (NEGATIVE); UR NITRITE (Dip) NEGATIVE (NEGATIVE); UR SPECIFIC GRAVITY (Dip) 1.032 (1.003-1.030); UR TOTAL PROTEIN (Dip) NEGATIVE (NEGATIVE); UR UROBILINOGEN (Dip) NEGATIVE (NEGATIVE)
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
[2017-07-09] MEDS ORDERED: HYDROCODONE/APAP (5/325) TAB PO ONE ×2 (10:00→10:30)
[2017-07-09 10:18] LABS: CALCIUM 9.1 mg/dl (8.4-10.2); CREATININE 0.85 mg/dl (0.61-1.24); POTASSIUM 4.7 mmol/L (3.5-5.1)
[2017-07-09] MEDS ORDERED: INSULIN LISPRO 100 UNIT/ML VIAL SC STA ×3 (10:36→10:57)
[2017-07-09] MEDS ORDERED: IBUP-1542 PO (10:47)
[2017-07-09] MEDS ORDERED: HYDR-906 PO (10:47)
[2017-07-09] MEDS ORDERED: SOD CHLORIDE 0.9% 1,000 ML IV ONE (11:00)
[2017-07-09] MEDS ORDERED: ONDANSETRON 4 MG INJ IV STA (11:37)
[2017-07-09 11:45] VITALS: BP 135/91; PULSE 66; RESP 20
[2017-07-09] MEDS ORDERED: ONDA4TAB14 PO (14:11)
== END 2017-07-09 11:46 | disposition home or self-care (01) ==
LOC: FTE 08:04
DX: S22.41XA Multiple fractures of ribs, right side, initial encounter for closed fracture (principal); E11.9 Type 2 diabetes mellitus without complications; R51 Headache; Y08.89XA Assault by other specified means, initial encounter; Z79.4 Long term (current) use of insulin; Z87.891 Personal history of nicotine dependence
CPT/HCPCS: 36415; 70450; 71100; 80048; 81003; 82962; 85025; 96361; 96372; 96374; 96375; J1815; J1885; J2405; J7030; Z7502; Z7610

== ENCOUNTER 2017-11-04 07:01 | Emergency (ER) | END 2017-11-04 09:10 | disposition home or self-care (01) ==

== ENCOUNTER 2018-03-13 01:21 | Emergency (ER) | END 2018-03-14 08:32 ==